=== PATIENT | female | born 1995 | race African-American/Black ===

== ENCOUNTER 2022-10-28 13:51 | Emergency (ER) | payer MEDICAID, OTHER, SELFPAY ==
[2022-10-28] MEDS ORDERED: Morphine 2 MG/ML VIAL ONE (14:51)
[2022-10-28] MEDS ORDERED: Ondansetron PF 4 MG/2 ML Vial ONE (14:51)
[2022-10-28 15:35] LABS: #Eosinphils 0.2 thou/uL (0.0-0.7); #Lymphocytes 1.3 thou/uL (1.20-3.40); #Monocytes 0.4 thou/uL (0.11-0.59); #Neutrophils 3.4 thou/uL (1.40-6.50); %Basophils 0.7 % (0.0-1.0); %Eosinophils 3.1 % (0.0-10.0); %Lymphocytes 24.5 % (21.0-51.0); %Monocytes 6.7 % (0.0-10.0); Hemoglobin 11.1 g/dL (12.0-16.0); Mean Corpuscular HGB CONC 34.4 g/dL (32.0-36.0); Mean Corpuscular Hemoglobin 34.3 pg (27.0-31.0); Mean Corpuscular Volume 99.9 fl (78.0-98.0); Mean Platelet Volume 7.2 fL (7.4-10.4); Platelet Count 210 10x3/uL (130-400); Red Blood Cell (RBC) Count 3.22 mill/uL (4.20-5.40); White Blood Cell (WBC) Count 5.3 10x3/uL (4.8-10.8)
[2022-10-28] MEDS ORDERED: Acetaminophen 500 MG TAB ONE (15:46)
[2022-10-28 15:58] LABS: ALT (SGPT) 9 U/L (8-55); AST (SGOT) 11 U/L (5-34); Albumin 3.5 g/dL (3.5-5.0); Alkaline Phosphatase 51 U/L (40-110); Anion Gap 10 mmol/L (10-20); BUN (Urea Nitrogen) 9 mg/dL (7.0-18.7); Bilirubin, Total 0.3 mg/dL (0.2-1.2); Calc. Creatinine Clearance 0 mL/min (70-130); Calcium 8.9 mg/dL (7.8-10.44); Carbon Dioxide 24 mmol/L (22-29); Chloride 108 mmol/L (98-107); Estimated GFR 122; Globulin 2.8 g/dL (2.4-3.5); Glucose 83 mg/dL (70-105); Potassium 4.1 mmol/L (3.5-5.1); Protein, Total 6.3 g/dL (6.0-8.3); Sodium 138 mmol/L (136-145)
== END 2022-10-28 16:54 | disposition short-term general hospital (02) ==
LOC: ERS 13:51
DX: O99.612 Diseases of the digestive system complicating pregnancy, second trimester (principal); Z3A.23 23 weeks gestation of pregnancy
CPT/HCPCS: 36415; 76815; 80053; 85025; J2272; J2405

== ENCOUNTER 2023-02-14 20:45 | Emergency (ER) | payer OTHER | END 2023-02-14 21:52 | disposition short-term general hospital (02) | LOC: ERS 20:45 | DX: Z34.90 Encounter for supervision of normal pregnancy, unspecified, unspecified trimester (principal) | CPT/HCPCS: 99284 ==